=== PATIENT | male | born 1985 | race Caucasian/White ===

== ENCOUNTER → 2016-10-31 | Outpatient (CLI) | payer OTHER ==
[~2016-10-31] MED LIST: BACI1TAB3 PO; FEXO180T84 PO; HYDR-3730 PO; KDUR; LEVO750T9 PO; METR500T PO; MULT-192 PO; ONDA4TAB8 PO; POTA10TA PO; RANI150T15 PO; ZANTAC; ZOFRAN
--- NOTE | 2016-10-31 13:41 | Diagnostic Imaging Report ---
PROCEDURE: US abdomen complete. TECHNIQUE: Multiple real-time grayscale images were obtained over the abdomen in various projections. INDICATION: Epigastric pain. FINDINGS: The visualized portions of pancreas appear unremarkable. There is a hyperechoic mass measuring 1 cm in the left hepatic lobe and another similar hyperechoic mass measuring 1.8 x 2.0 x 1.9 cm in the right hepatic lobe. These are likely related to hemangiomas. There is no internal vascularity demonstrated with color Doppler. The gallbladder demonstrates wall thickening measuring up to 9 mm with internal echogenicity within in its lumen suggestive of sludge. No definitive stone. The CBD is obscured by bowel gas. No intrahepatic biliary dilatation is appreciated. The spleen is mildly enlarged at 14 x 6.2 x 6.2 cm. The left is kidney is 12.7 and the right kidney is 12.8 cm in length. There is no hydronephrosis or focal lesion. No fluid collection in the abdomen or pelvis seen. Sonographic Jones sign is reportedly negative. IMPRESSION: 1. Hepatic hyperechoic masses up to 2 cm in the right lobe favored to be related to hemangioma. Confirmation with liver mass protocol MRI or CT is recommended. If not performed, then at least obtain a followup hepatic ultrasound in six months. 2. Prominent gallbladder wall thickening with suggestion of sludge. No definite stones. This could relate to acalculous cholecystitis or secondary to hepatitis. 3. Mild splenomegaly. Dictated by: Dictated on workstation # [id number]
== END ==
LOC: RAD 12:38
PROVIDERS: ATTEND Nurse Practitioner Family
DX: R16.1 Splenomegaly, not elsewhere classified (principal); K76.9 Liver disease, unspecified
CPT/HCPCS: 76700

== ENCOUNTER 2016-11-08 20:04 | Inpatient (IN) | payer OTHER ==
[~2016-11-08] VITALS: Ht 188 cm; Wt 88.5 kg
[2016-11-08] MEDS ORDERED: ZANTAC (20:22)
[2016-11-08] MEDS ORDERED: ZOFRAN (20:22)
[2016-11-08] MEDS ORDERED: KDUR (20:22)
[2016-11-08] MEDS ORDERED: fentaNYL INJECTION 100 MCG/2 ML AMP IVP STA ×2 (20:35→21:33)
--- NOTE | 2016-11-08 20:35 | ED Abdominal Pain ---
General Chief Complaint: Abdominal/GI Problems Stated Complaint: ABD PAIN Nursing Triage Note: PT TO ED 4 W/ C/O "LEVEL 5 ABDOMINAL PAIN" ONSET TODAY. REPORTS RECENTLY DX W/ "GALLBLADDER SLUDGE" ET HAS INTERMITTENT PAIN X2 WKS. DENIES N/V/D Sepsis Screen: No Definite Risk History of Present Illness Time Seen By Provider: 20:30 Initial Comments Patient presents with 2 weeks of epigastric pain with intermittent nausea. He describes pain as his stomach being folded around something sharp and squeezing. He was worked up by his PCP outpatient with ultrasound found to have gallbladder sludge as well as some incidental hemangiomas in the liver and set up with a surgeon outpatient to discuss having his gallbladder taken out. He denies nausea right now. No fevers, chills, malaise. He had a bowel movement yesterday regular. No dysuria, no shortness of breath or chest pain. No history of surgeries to the belly. over the past couple weeks his PCP is been working him up and had an ultrasound showing sludge with mild thickening of the gallbladder wall. He has an appointment to see Dr. Ojeda, General Surgery in 2 days about elective surgery for his gallbladder. Allergies and Home Medications Allergies Coded Allergies: amoxicillin (Verified Allergy, Unknown, 11/08/16) cefaclor (Verified Allergy, Unknown, 11/08/16) montelukast (Verified Allergy, Unknown, 11/08/16) Home Medications [Kdur] , (Reported) [Zantac] , (Reported) [Zofran] , (Reported) Review of Systems Constitutional: No chills, No fever, malaise, No weight loss Respiratory: Denies Cough, Denies Shortness of Air Cardiovascular: Denies Chest Pain, Denies Edema Gastrointestinal: Abdominal Pain (epigastric radiates to back), Denies Constipated, Denies Diarrhea, Nausea, Denies Vomiting Genitourinary: Denies Burning, Denies Discharge Musculoskeletal: No back pain, No joint pain Skin: No pruritus, No rash Past Wekgssh-Geznrq-Yejkwz Hx Patient Social History Alcohol Use: Denies Use Recreational Drug Use: No Smoking Status: Never a Smoker Recent Foreign Travel: No Contact w/Someone Who Travel: No Recent Infectious Disease Expo: No Recent Hopitalizations: No Surgeries HX Surgeries: Yes (DENTAL) Respiratory Hx Respiratory Disorders: No Cardiovascular Hx Cardiac Disorders: No Neurological Hx Neurological Disorders: No Reproductive System Hx Reproductive Disorders: No Genitourinary Hx Genitourinary Disorders: No Gastrointestinal Hx Gastrointestinal Disorders: No Musculoskeletal Hx Musculoskeletal Disorders: No Endocrine Hx Endocrine Disorders: No HEENT HX ENT Disorders: No Cancer Hx Cancer: No Psychosocial Hx Psychiatric Problems: No Physical Exam Vital Signs VS - Last 72 Hours, by Label 11/08/16 20:07 Temp 98.0 Pulse 76 Resp 20 B/P (MAP) 142/100 Pulse Ox 100 O2 Delivery Room Air Capillary Refill : Less Than 3 Seconds General Appearance: WD/WN, moderate distress HEENT: PERRL/EOMI, pharynx normal Respiratory: chest non-tender, lungs clear Cardiovascular: normal peripheral pulses, regular rate, rhythm Peripheral Pulses: 4+ Dorsalis Pedis (R), 4+ Left Dors-Pedis (L), 4+ Radial Pulses (R), 4+ Radial Pulses (L) Gastrointestinal: normal bowel sounds, guarding, tenderness (epigastric, lumbar flexion reproduces the same pain.), other (Jones's sign positive) Extremities: normal range of motion, non-tender Back: normal inspection, no CVA tenderness Neurologic/Psychiatric: alert, oriented x 3 Skin: normal color, warm/dry Lymphatic: no adenopathy Progress/Results/Core Measures Results/Orders Lab Results Laboratory Tests Test 11/08/16 20:37 11/08/16 20:43 Range/Units Urine Color YELLOW Urine Clarity SLIGHTLY CLOUDY Urine pH 7 5-9 Urine Specific [place] 1.010 L 1.016-1.022 Urine Protein NEGATIVE NEGATIVE Urine Glucose (UA) NEGATIVE NEGATIVE Urine Ketones 3+ H NEGATIVE Urine Nitrite NEGATIVE NEGATIVE Urine Bilirubin NEGATIVE NEGATIVE Urine Urobilinogen NORMAL NORMAL MG/DL Urine Leukocyte Esterase 1+ H NEGATIVE Urine RBC (Auto) NEGATIVE NEGATIVE Urine RBC NONE /HPF Urine WBC 0-2 /HPF Urine Squamous Epithelial Cells 0-2 /HPF Urine Crystals NONE /LPF Urine Bacteria NONE /HPF Urine Casts NONE /LPF Urine Mucus NEGATIVE /LPF Urine Culture Indicated NO White Blood Count 14.5 H 4.3-11.0 10^3/uL Red Blood Count 5.40 4.35-5.85 10^6/uL Hemoglobin 16.0 13.3-17.7 G/DL Hematocrit 46 40-54 % Mean Corpuscular Volume 85 80-99 FL Mean Corpuscular Hemoglobin 30 25-34 PG Mean Corpuscular Hemoglobin Concent 35 32-36 G/DL Red Cell Distribution Width 12.8 10.0-14.5 % Platelet Count 317 130-400 10^3/uL Mean Platelet Volume 10.2 7.4-10.4 FL Neutrophils (%) (Auto) 79 H 42-75 % Lymphocytes (%) (Auto) 14 12-44 % Monocytes (%) (Auto) 6 0-12 % Eosinophils (%) (Auto) 1 0-10 % Basophils (%) (Auto) 0 0-10 % Neutrophils # (Auto) 11.4 H 1.8-7.8 X 10^3 Lymphocytes # (Auto) 2.0 1.0-4.0 X 10^3 Monocytes # (Auto) 0.9 0.0-1.0 X 10^3 Eosinophils # (Auto) 0.2 0.0-0.3 10^3/uL Basophils # (Auto) 0.1 0.0-0.1 10^3/uL Neutrophils % (Manual) 74 % Lymphocytes % (Manual) 16 % Monocytes % (Manual) 7 % Eosinophils % (Manual) 0 % Basophils % (Manual) 1 % Band Neutrophils 2 % Blood Morphology Comment NORMAL Sodium Level 140 135-145 MMOL/L Potassium Level 3.4 L 3.6-5.0 MMOL/L Chloride Level 103 98-107 MMOL/L Carbon Dioxide Level 24 21-32 MMOL/L Anion Gap 13 5-14 MMOL/L Blood Urea Nitrogen 10 7-18 MG/DL Creatinine 1.02 0.60-1.30 MG/DL Estimat Glomerular Filtration Rate > 60 BUN/Creatinine Ratio 10 Glucose Level 99 70-105 MG/DL Calcium Level 9.4 8.5-10.1 MG/DL Total Bilirubin 1.0 0.1-1.0 MG/DL Aspartate Amino Transf (AST/SGOT) 14 5-34 U/L Alanine Aminotransferase (ALT/SGPT) 19 0-55 U/L Alkaline Phosphatase 89 40-136 U/L Total Protein 7.8 6.4-8.2 G/DL Albumin 4.7 H 3.2-4.5 G/DL Amylase Level 87 25-125 U/L Lipase 18 8-78 U/L My Orders Orders - COLLEEN ROBERSON Amylase (11/08/16 20:35) Fentanyl Injection (Sublimaze Injection (11/08/16 20:35) Ondansetron Injection (Zofran Injectio (11/08/16 20:45) Ct Abdomen/Pelvis W (11/08/16 21:33) Fentanyl Injection (Sublimaze Injection (11/08/16 21:33) Ns Iv 1000 Ml (Sodium Chloride 0.9%) (11/08/16 21:33) Iohexol Injection (Omnipaque 350 Mg/Ml 1 (11/08/16 22:00) Ns (Ivpb) (Sodium Chloride 0.9% Ivpb Bag (11/08/16 22:00) Hydromorphone Injection (Dilaudid Inject (11/08/16 22:30) Hydromorphone Injection (Dilaudid Inject (11/08/16 22:27) Medications Given in ED Current Medications Medications Dose Ordered Sig/Rosalino Route Start Time Stop Time Status Last Admin Dose Admin Hydromorphone HCl 1 mg ONCE PRN IVP 11/08/16 22:30 11/08/16 22:32 1 MG Iohexol 100 ml ONCE ONCE IV 11/08/16 22:00 11/08/16 22:01 DC 11/08/16 22:01 100 ML Ondansetron HCl 4 mg ONCE ONCE IVP 11/08/16 20:45 11/08/16 20:46 DC 11/08/16 20:51 4 MG Sodium Chloride 100 ml ONCE ONCE IV 11/08/16 22:00 11/08/16 22:01 DC 11/08/16 22:02 80 ML Sodium Chloride 1,000 ml @ 0 mls/hr Q0M ONCE IV 11/08/16 21:33 11/08/16 21:35 DC 11/08/16 21:47 1,000 MLS/HR Vital Signs/I&O Vital Sign - Last 12Hours 11/08/16 20:07 Temp 98.0 Pulse 76 Resp 20 B/P (MAP) 142/100 Pulse Ox 100 O2 Delivery Room Air Intake and Output 11/09/16 00:00 Intake Total 1000 ml Balance 1000 ml Blood Pressure Mean: 114 Departure Communication Time/Spoke to Admitting Phy: 23:[address] Madrid will take inpt on clear liquid diet with Cipro and Flagyl and IV fluids and when necessary's for pain and nausea. He will decide tomorrow whether to take him to surgery or what him cool down on antibiotics and fluids. Impression Impression: Primary Impression: Choledocholithiasis Disposition: ADMITTED INPATIENT Condition: Stable Decision to Admit Reason: Admit from ER (General) Decision to Admit/Date: Nov 08, 2016 Time/Decision to Admit Time: 23:15 Departure-Patient Inst. Referrals: PRETTY HARDEN DO (PCP) Primary Care Physician MALIK APARICIO (Family) Primary Care Physician Copy Copies To 1: PRETTY HARDEN TITUS J Nov 08, 2016 20:35
[2016-11-08 20:44] LABS: BILIRUBIN,URINE NEGATIVE (NEGATIVE); KETONES,URINE 3+ (NEGATIVE); LEUKOCYTE ESTERASE ,URINE 1+ (NEGATIVE); NITRITE,URINE NEGATIVE (NEGATIVE); PH,URINE 7 (5-9); PROTEIN,URINE NEGATIVE (NEGATIVE); UROBILINOGEN,URINE NORMAL (NORMAL)
[2016-11-08] MEDS ORDERED: ONDANSETRON 4 MG/2 ML (SDV) Z0FRAN IVP ONE (20:45)
[2016-11-08 20:55] LABS: BASOPHILS # (AUTO) 0.1 10^3/uL (0.0-0.1); BASOPHILS % (AUTO) 0 % (0-10); EOSINOPHILS # (AUTO) 0.2 10^3/uL (0.0-0.3); EOSINOPHILS % (AUTO) 1 % (0-10); LYMPHOCYTES % (AUTO) 14 % (12-44); MEAN CORPUSCULAR HEMOGLOBIN 30 PG (25-34); MEAN CORPUSCULAR HGB CONC 35 G/DL (32-36); MEAN CORPUSCULAR VOLUME 85 FL (80-99); MEAN PLATELET VOLUME 10.2 FL (7.4-10.4); MONOCYTES # (AUTO) 0.9 X 10^3 (0.0-1.0); MONOCYTES % (AUTO) 6 % (0-12); NEUTROPHILS # (AUTO) 11.4 X 10^3 (1.8-7.8); NEUTROPHILS % (AUTO) 79 % (42-75); PLATELET COUNT 317 10^3/uL (130-400); RED CELL DISTRIBUTION WIDTH 12.8 % (10.0-14.5); WHITE BLOOD COUNT 14.5 10^3/uL (4.3-11.0)
[2016-11-08 21:02] LABS: SQUAMOUS EPITHELIAL CELL,UR 0-2 /HPF; WBC,URINE 0-2 /HPF
[2016-11-08 21:12] LABS: ALANINE AMINOTRANSFERASE 19 U/L (0-55); ALBUMIN 4.7 G/DL (3.2-4.5); AMYLASE 87 U/L (25-125); ANION GAP 13 MMOL/L (5-14); ASPARTATE AMINO TRANSFERASE 14 U/L (5-34); BLOOD UREA NITROGEN 10 MG/DL (7-18); BUN/CREATININE RATIO 10; CALCIUM 9.4 MG/DL (8.5-10.1); CARBON DIOXIDE 24 MMOL/L (21-32); CHLORIDE 103 MMOL/L (98-107); CREATININE SERUM 1.02 MG/DL (0.60-1.30); GFR ESTIMATED > 60; GLUCOSE 99 MG/DL (70-105); LIPASE 18 U/L (8-78); POTASSIUM 3.4 MMOL/L (3.6-5.0); SODIUM 140 MMOL/L (135-145); TOTAL PROTEIN 7.8 G/DL (6.4-8.2)
[2016-11-08 21:15] LABS: BAND NEUTROPHILS 2 %; BASOPHILS % (MANUAL) 1 %; EOSINOPHILS % (MANUAL) 0 %; LYMPHOCYTES % (MANUAL) 16 %; NEUTROPHILS % (MANUAL) 74 %
[2016-11-08] MEDS ORDERED: NS IV 1000 ML 1,000 ML IV ONE (21:33)
[2016-11-08] MEDS ORDERED: NS 100 ML (IVPB) BAG IV ONE (22:00)
[2016-11-08] MEDS ORDERED: IOHEXOL 350 MG/ML 100 ML (OMNIPAQUE 350) VIAL IV ONE (22:00)
[2016-11-08] MEDS ORDERED: HYDROmorphone (DILAUDID) 2 MG/ML VIAL ONE (22:27)
[2016-11-08] MEDS ORDERED: HYDROmorphone (DILAUDID) 2 MG/ML VIAL IVP PRN (22:30)
[2016-11-09] VITALS (7 sets, daily range): BP systolic 110–134; BP diastolic 70–89
[2016-11-09] MEDS ORDERED: NS IV 1000 ML 1,000 ML ONE (00:33)
[2016-11-09] MEDS ORDERED: ONDANSETRON 4 MG/2 ML (SDV) Z0FRAN ONE (00:33)
[2016-11-09] MEDS ORDERED: metroNIDAZOLE 500MG/100ML IVPB 100 ML ONE (00:33)
[2016-11-09] MEDS ORDERED: KETOROLAC 15 MG/ML VIAL ONE (00:33)
[2016-11-09] MEDS ORDERED: fentaNYL INJECTION 100 MCG/2 ML AMP IV PRN (01:15)
[2016-11-09] MEDS ORDERED: ONDANSETRON 4 MG/2 ML (SDV) Z0FRAN IV PRN (01:15)
[2016-11-09] MEDS ORDERED: CIPROFLOXACIN 400 MG/D5W 200 ML (PRE-MIX) IV SCH (01:15)
[2016-11-09] MEDS: NS IV 1000 ML 1,000 ML IV SCH ×2 (02:01→13:52)
[2016-11-09] MEDS: ACETAMINOPHEN 325 MG TABLET/CAPLET (TYLENOL) PO PRN ×2 (05:35→13:56)
[2016-11-09] MEDS ORDERED: metroNIDAZOLE 500 MG/100 ML IVPB (PRE-MIX) IV SCH (06:00)
[2016-11-09 06:13] LABS: BASOPHILS % (AUTO) 0 % (0-10); EOSINOPHILS % (AUTO) 0 % (0-10); LYMPHOCYTES # (AUTO) 0.7 X 10^3 (1.0-4.0); LYMPHOCYTES % (AUTO) 4 % (12-44); MEAN CORPUSCULAR HEMOGLOBIN 29 PG (25-34); MEAN CORPUSCULAR HGB CONC 34 G/DL (32-36); MEAN CORPUSCULAR VOLUME 86 FL (80-99); MEAN PLATELET VOLUME 10.6 FL (7.4-10.4); MONOCYTES # (AUTO) 1.1 X 10^3 (0.0-1.0); MONOCYTES % (AUTO) 6 % (0-12); NEUTROPHILS # (AUTO) 15.9 X 10^3 (1.8-7.8); NEUTROPHILS % (AUTO) 90 % (42-75); PLATELET COUNT 250 10^3/uL (130-400); RED BLOOD COUNT 5.36 10^6/uL (4.35-5.85); WHITE BLOOD COUNT 17.6 10^3/uL (4.3-11.0)
[2016-11-09 06:28] LABS: ALANINE AMINOTRANSFERASE 18 U/L (0-55); ALBUMIN 4.2 G/DL (3.2-4.5); ANION GAP 11 MMOL/L (5-14); ASPARTATE AMINO TRANSFERASE 19 U/L (5-34); BILIRUBIN,TOTAL 1.4 MG/DL (0.1-1.0); BLOOD UREA NITROGEN 9 MG/DL (7-18); BUN/CREATININE RATIO 10; CALCIUM 8.9 MG/DL (8.5-10.1); CARBON DIOXIDE 23 MMOL/L (21-32); CHLORIDE 104 MMOL/L (98-107); CREATININE SERUM 0.89 MG/DL (0.60-1.30); GFR ESTIMATED > 60; GLUCOSE 125 MG/DL (70-105); POTASSIUM 3.9 MMOL/L (3.6-5.0); SODIUM 138 MMOL/L (135-145); TOTAL PROTEIN 7.2 G/DL (6.4-8.2)
--- NOTE | 2016-11-09 08:11 | Diagnostic Imaging Report ---
CLINICAL INDICATION: Patient with abdominal pain off and on x2 weeks. No surgical history. Recent diagnosis of gallbladder sludge. EXAM: Axial CT scan of the abdomen and pelvis performed with 100 cc of Omnipaque 350 IV contrast. Coronal and sagittal reformatted images were created. Portal venous and delayed phases were obtained. COMPARISON: Ultrasound of the right upper quadrant dated 10/31/2016. FINDINGS: Visualized lung bases are clear. Bones show no significant abnormality. The extra-abdominal and extra pelvic soft tissue structures are unremarkable. There is a 1.6-cm peripherally enhancing lesion in the right lobe of the liver which demonstrates isodensity to liver on the delayed phase, likely representing a hemangioma. There is a 7-mm low-density lesion involving the anterior aspect of the left lobe of the liver which demonstrates no significant enhancement. A cyst may be considered. There is amorphous relative high-density involving the liver near the gallbladder fossa which may represent fatty sparing. There is mild low-attenuation diffusely throughout the liver which may be related to fatty infiltration. The spleen, pancreas, adrenal glands, and both kidneys show no significant abnormality. The gallbladder is enlarged and mildly distended measuring 11.2 cm x 4.5 cm. There is gallbladder wall thickening and adjacent fat stranding. There is a roughly 1.5-cm slightly high-density rounded structure in the region of the neck of the gallbladder which may represent a stone. There is no intra-hepatic ductal dilation or dilation of the pancreatic duct. There is no intra-abdominal free air or free fluid. The bladder is partially fluid distended, but no significant abnormality is visualized. The colon, small bowel, and stomach are unremarkable as visualized. Appendix is unremarkable. There is no significant abdominal or pelvic lymphadenopathy. IMPRESSION: 1. The gallbladder demonstrates enlargement, fluid distention, gallbladder wall thickening, and adjacent fat stranding. There is a 15-mm rounded slightly high-density structure in the neck of the gallbladder. These findings are concerning for acute cholecystitis. 2. A roughly 16-mm hemangioma in the right lobe of the liver. Suspected cyst involving the anterior aspect of the left lobe of the liver. 3. There is diffuse fatty infiltration of the liver with fatty sparing in the region of the gallbladder fossa. I agree with [employer] report. Dictated by: Dictated on workstation # [id number]
[2016-11-09] MEDS ORDERED: ONDA4TAB8 PO (09:49)
[2016-11-09] MEDS ORDERED: MULT-192 PO (09:49)
[2016-11-09] MEDS ORDERED: POTA10TA PO (09:49)
[2016-11-09] MEDS ORDERED: BACI1TAB3 PO (09:49)
[2016-11-09] MEDS ORDERED: RANI150T15 PO (09:49)
[2016-11-09] MEDS ORDERED: FEXO180T84 PO (09:50)
[2016-11-09] MEDS ORDERED: HYDROcodone/APAP 5 MG/325 MG (LORTAB) TAB ONE (10:53)
[2016-11-09] MEDS: HYDROcodone/APAP 7.5 MG/325 MG (LORTAB, LORCET PLUS) TABLET PO PRN ×4 (10:59→21:53)
[2016-11-09] MEDS ORDERED: PIPERACILLIN SODIUM/TAZOBACTAM 4.5 GM in NS (IVPB) 100 ML IV NR (11:04)
[2016-11-09] MEDS ORDERED: CATHETER FLUSH 10 ML SYR IV PRN (11:15)
--- NOTE | 2016-11-09 12:52 | History & Physicial ---
History of Present Illness History of Present Illness Reason for visit/HPI This is a 31 year old male who was seen with Dr. Lemus. He presented to the ER last night with complaints of RUQ abdominal pain for the last 2 weeks. Patient reports that approx 2 weeks ago he started developing sharp RUQ pain that radiated toward his back. He reports that he thought it was heartburn and tried tums without relief. He was then seen by his PCP and an Ultrasound was done with showed gallbladder sludge. He reports that he was to follow up with a surgeon about getting his gallbladder removed. He reports that the pain over the course of the 2 weeks has been increasing at times and has even had episodes of Nausea associated with it. He reports that the pain usually occurs after eating a meal. He also reports that he has had intermittent fevers/ chills. He says that the pain last night was becoming so severe that he presented to the ER where a CT scan was performed and he was found to have gallbladder wall thickening as well as a a gallstone in the neck of the gallbladder. He reports today that his pain continues to be moderate at times but is otherwise tolerable. He is tolerating a clear liquid diet and has not had any issues with diarrhea or constipation. Date of Admission Nov 08, 2016 at 23:15 I consulted on this patient on 11/09/16 12:44 Attending Physician Vik Lemus MD Admitting Physician Dari Barrow DO Consult Allergies and Home Medications Allergies Coded Allergies: amoxicillin (Verified Allergy, Unknown, 11/08/16) cefaclor (Verified Allergy, Unknown, 11/08/16) montelukast (Verified Allergy, Unknown, 11/08/16) Home Medications Bacillus Coagulans 1 Each Tab.chew, 2 TAB.CHEW PO DAILY, (Reported) Fexofenadine HCl 180 Mg Tablet, 180 MG PO DAILY PRN for ALLERGIES, (Reported) Multivitamin 1 Each Tab.chew, 6 TAB.CHEW PO DAILY, (Reported) Ondansetron 4 Mg Tab.rapdis, 4 MG PO Q6H PRN for NAUSEA/VOMITING-1ST LINE, ( Reported) Potassium Chloride 10 Meq Tablet.er, 10 MEQ PO Q12H, #20 (Reported) Ranitidine HCl 150 Mg Tablet, 150 MG PO Q12H, (Reported) Past Qoktxsz-Ttvjpw-Qafjrl Hx Patient Social History Alcohol Use: Denies Use Recreational Drug Use: No Smoking Status: Never a Smoker Physical Abuse Screen: No Sexual Abuse: No Recent Foreign Travel: No Contact w/other who traveled: No Recent Hopitalizations: Yes (ER TWO WEEKS AGO FOR ABD PAIN) Recent Infectious Disease Expo: No Seasonal Allergies Seasonal Allergies: Yes Surgeries HX Surgeries: Yes (DENTAL) Respiratory Hx Respiratory Disorders: No Cardiovascular Hx Cardiovascular Disorders: No Neurological Hx Neurological Disorders: No Reproductive System Hx Reproductive Disorders: No Sexually Transmitted Disease: No HIV/AIDS: No Genitourinary Hx Genitourinary Disorders: No Gastrointestinal Hx Gastrointestinal Disorders: No Gastrointestinal Disorders: Abdominal Hernia Musculoskeletal Hx Musculoskeletal Disorders: No Musculoskeletal Disorders: Fractures Endocrine Hx Endocrine Disorders: No HEENT HX ENT Disorders: No Cancer Hx Cancer: No Psychosocial Hx Psychiatric Problems: No Integumentary Skin/Integumentary Disorders: Eczema Blood Transfusions Adverse Reaction to a Blood Tr: No Family Medical History Family Hx: Asthma 19 FATHER Hypertension 19 FATHER Osteoporosis 19 MOTHER Respiratory disorder 19 FATHER Constitutional: chills, fever EENTM: no symptoms reported Respiratory: no symptoms reported Cardiovascular: no symptoms reported Gastrointestinal: RUQ, abdominal pain (RUQ), No constipation, No diarrhea, nausea Genitourinary: no symptoms reported Musculoskeletal: back pain Skin: no symptoms reported Psychiatric/Neurological: No Symptoms Reported Physical Exam Vital Signs Vital Sign - Last 12Hours 11/08/16 11/09/16 20:07 00:00 Temp 98.0 Pulse 76 Resp 20 B/P (MAP) 142/100 Pulse Ox 100 O2 Delivery Room Air O2 Flow Rate 1.50 Capillary Refill : Less Than 3 Seconds General Appearance: No Apparent Distress, WD/WN HEENT: PERRL/EOMI Neck: Full Range of Motion, Normal Inspection, Non Tender, Supple Respiratory: Chest Non Tender, Lungs Clear, Normal Breath Sounds, No Accessory Muscle Use, No Respiratory Distress Cardiovascular: Regular Rate, Rhythm, No Edema Gastrointestinal: Normal Bowel Sounds, Soft, Tenderness (RUQ, Epigastric area) Back: Normal Inspection Extremity: Normal Capillary Refill, Normal Inspection, Normal Range of Motion, Non Tender, No Calf Tenderness Neurologic/Psychiatric: Alert, Oriented x3, Normal Mood/Affect Skin: Normal Color, Warm/Dry Assessment/Plan Assessment and Plan A 31 year old male with acute cholecystitis with cholelithiasis. IV fluids, pain, nausea medications. IV abx with meropenem due to increase in WBC while on Cipro and Flagyl and allergic to PCN. clear liquid diet. Repeat lab in am. NPO at 0200. Will schedule for laparoscopic cholecystectomy tomorrow AM. Problems: Clinical Quality Measures DVT/VTE Risk/Contraindication: RFS Level Per Nursing on Admit: 0=No Risk/No VTE PPX Copy Copies To 1: VIK LEMUS MD, DUSTIN L APRN Nov 09, 2016 12:52
[2016-11-09] MEDS: MEROPENEM 500 MG in NS (IVPB) 100 ML IV SCH ×2 (13:52→18:37)
--- NOTE | 2016-11-09 15:44 | Progress Note-Pre Operative ---
Pre-Operative Progress Note H&P Reviewed The H&P was reviewed, patient examined and no changes noted. Date H&P Reviewed: Nov 09, 2016 Time H&P Reviewed: 15:43 Pre-Operative Diagnosis: acute cholecystitis VIK LEMUS MD Nov 09, 2016 3:44 pm
[2016-11-09] MEDS ORDERED: PIPERACILLIN SODIUM/TAZOBACTAM 4.5 GM in NS (IVPB) 100 ML IV SCH (17:00)
[2016-11-09] MEDS ORDERED: morphine INJ 4 MG/ML 1 ML (VIAL/SYRINGE) IVP PRN (18:30)
[2016-11-10] MEDS: MEROPENEM 500 MG in NS (IVPB) 100 ML IV SCH ×5 (00:10→23:55)
[2016-11-10] MEDS: HYDROcodone/APAP 7.5 MG/325 MG (LORTAB, LORCET PLUS) TABLET PO PRN ×3 (00:10→22:04)
[2016-11-10] MEDS: NS IV 1000 ML 1,000 ML IV SCH (00:10)
[2016-11-10 04:00] VITALS: BP 109/65
[2016-11-10 05:04] LABS: MEAN PLATELET VOLUME 11.1 FL (7.4-10.4); RED BLOOD COUNT 4.61 10^6/uL (4.35-5.85); RED CELL DISTRIBUTION WIDTH 13.3 % (10.0-14.5); WHITE BLOOD COUNT 12.7 10^3/uL (4.3-11.0)
[2016-11-10 05:21] LABS: ALANINE AMINOTRANSFERASE 16 U/L (0-55); ALBUMIN 3.6 G/DL (3.2-4.5); ANION GAP 10 MMOL/L (5-14); ASPARTATE AMINO TRANSFERASE 17 U/L (5-34); BILIRUBIN,TOTAL 1.7 MG/DL (0.1-1.0); BLOOD UREA NITROGEN 7 MG/DL (7-18); BUN/CREATININE RATIO 7; CALCIUM 8.2 MG/DL (8.5-10.1); CARBON DIOXIDE 23 MMOL/L (21-32); CHLORIDE 104 MMOL/L (98-107); CREATININE SERUM 0.97 MG/DL (0.60-1.30); GFR ESTIMATED > 60; GLUCOSE 101 MG/DL (70-105); POTASSIUM 4.1 MMOL/L (3.6-5.0); SODIUM 137 MMOL/L (135-145); TOTAL PROTEIN 6.4 G/DL (6.4-8.2)
[2016-11-10 08:00] VITALS: BP 111/73
[2016-11-10] MEDS: KETOROLAC 15 MG/ML VIAL IV PRN (08:28)
[2016-11-10] MEDS ORDERED: fentaNYL INJECTION 250 MCG/5 ML AMP ONE (09:13)
[2016-11-10] MEDS ORDERED: LACTATED RINGERS 1,000 ML IV ONE ×2 (09:13→10:53)
[2016-11-10] MEDS ORDERED: SEVOFLURANE (ULTANE) 15 ML INHAL SOLN ONE ×6 (09:13→11:54)
[2016-11-10] MEDS ORDERED: LIDOCAINE PF 2% 10 ML (XYLOCAINE) AMP ONE (09:13)
[2016-11-10] MEDS ORDERED: ROCURONIUM 50 MG/5 ML (ZEMURON) VIAL IV ONE (09:13)
[2016-11-10] MEDS ORDERED: proPOfol 200 MG/20 ML (DIPRIVAN) VIAL IV ONE (09:13)
[2016-11-10] MEDS ORDERED: DEXAMETHASONE PF 10 MG/ML (DECADRON) VIAL ONE (09:13)
[2016-11-10] MEDS ORDERED: ONDANSETRON 4 MG/2 ML (SDV) Z0FRAN ONE ×2 (09:13→11:53)
[2016-11-10] MEDS ORDERED: MIDAZOLAM 2 MG/2 ML (VERSED) VIAL ONE (09:14)
[2016-11-10] MEDS ORDERED: BUP/EPI 0.5% 1:200,000 (SENSORCAINE) 30 ML VIAL ONE (09:27)
[2016-11-10] MEDS: LACTATED RINGERS 1,000 ML IV PRN ×2 (10:00→11:00)
[2016-11-10] MEDS ORDERED: fentaNYL INJECTION 100 MCG/2 ML AMP ONE (11:38)
[2016-11-10] MEDS ORDERED: GLYCOPYRROLATE 0.2 MG/ML (ROBINUL) 2 ML VIAL ONE (12:08)
[2016-11-10] MEDS ORDERED: NEOSTIGMINE (BLOXIVERZ ) 1 MG/1ML 10 ML VIAL ONE (12:08)
--- NOTE | 2016-11-10 12:37 | Progress Note-Post Operative ---
Post-Operative Progess Note Surgeon (s)/Tennis Instructor (s) Surgeon VIK LEMUS MD Tennis Instructor: none Pre-Operative Diagnosis acute cholecystitis Post-Operative Diagnosis same Post-Op Procedure Note Date of Procedure: Nov 10, 2016 Name of Procedure Performed: laparoscopic cholecystectomy. Description of the Procedure: laparoscopic cholecystectomy. Findings of the Procedure . Anesthesia Type GET Estimated blood loss (mL): 100ml Specimen(s) collected/removed gallbladder VIK LEMUS MD Nov 10, 2016 12:37 pm
[2016-11-10] MEDS ORDERED: LEVO750T9 PO (12:41)
[2016-11-10] MEDS ORDERED: METR500T PO (12:41)
[2016-11-10] MEDS ORDERED: HYDR-3730 PO (12:41)
--- NOTE | 2016-11-10 12:42 | Discharge Inst-Surgical ---
D/C Lap Instructions-MARIAH New, Converted, or Re-Newed RX: RX on Chart Follow Up Appt in 1 week Activity as tolerated No driving for 24 hours No driving while on pain medications Incentive Spirometry use every 2 hours while awake Regular Diet Symptoms to Report: Fever over 101 degree F, Nausea/Vomiting Infection Signs and Symptoms to report: Increased redness, Foul odor of wound, Increased drainage Bathing instructions: May shower Operative Area Clean/Dry; Keep incision clean/dry If any problems/questions: Contact your physician or go to Emergency Room VIK LEMUS MD Nov 10, 2016 12:42 pm
[2016-11-10] MEDS ORDERED: fentaNYL INJECTION 100 MCG/2 ML AMP IVP PRN (12:45)
[2016-11-10] MEDS ORDERED: HYDROmorphone (DILAUDID) 2 MG/ML VIAL IVP PRN (12:45)
[2016-11-10] MEDS ORDERED: ONDANSETRON 4 MG/2 ML (SDV) Z0FRAN IVP PRN (12:45)
[2016-11-10] MEDS ORDERED: morphine INJ 10 MG/ML 1ML (SYR OR VIAL) IVP PRN (12:45)
[2016-11-10 14:00] VITALS: BP 103/65
--- NOTE | 2016-11-10 15:31 | OPERATIVE REPORT ---
DATE OF SERVICE: 11/10/2016 ATTENDING PRIMARY CARE PHYSICIAN: Dr. Barrow. PREOPERATIVE DIAGNOSIS: Acute cholecystitis. POSTOPERATIVE DIAGNOSIS: Acute cholecystitis. PROCEDURE: Laparoscopic cholecystectomy. SURGEON: Dr. Madrid. ANESTHESIA: General endotracheal. ESTIMATED BLOOD LOSS: 100 mL. FINDINGS: Severely inflamed acute cholecystitis with thickened gallbladder wall, as well as a large solitary stone. DISPOSITION: The patient tolerated the procedure well. Mr. Michael Sanders is a 31-year-old male with right upper abdominal quadrant pain for the past two weeks. He reports that before presenting to the [facility] Emergency Department he states that the pain was much more severe in intensity and would not remit. He initially thought that this was more related to heartburn and acid indigestion. He underwent an ultrasound as an outpatient which did show gallstones. In the Emergency Department he did have a CT scan which did show gallbladder wall thickening, as well as a stone impacted in the neck of the gallbladder consistent with an acute cholecystitis. DESCRIPTION OF PROCEDURE: The patient was brought to the operating room and laid supine on the table. After adequate IV pain and sedating medications and general endotracheal intubation, the abdomen was prepped and draped in the standard surgical fashion. There was 0.5% Marcaine with epinephrine used to anesthetize the overlying skin in the left upper abdominal quadrant. A small transverse skin incision was made using a 15 blade. An 0 silk suture was applied to the medial aspect of the incision for retraction and a Veress needle inserted with a low opening pressure of 0 mmHg and abdomen was insufflated to 15 mmHg pressure. The Veress needle removed and the 5 mm Xcel trocar placed followed by a 5 mm 45 degree angle laparoscope visualizing the peritoneal cavity. There was an inflammatory phlegmon in the area of the gallbladder with omentum and mesentery caked onto the gallbladder. What was visualized of the liver. The omentum, stomach, and small bowel appeared normal. Under direct visualization we then proceeded to place a supraumbilical 10 mm port after the skin and peritoneum were anesthetized using 0.5% Marcaine with epinephrine and a transverse skin incision made using 15 blade. In a similar manner, a right upper abdominal quadrant 5 mm port was placed. The patient was then placed in reverse Trendelenburg position, as well as planed right side up, left side down. The gallbladder was decompressed using a laparoscopic needle and suctioned with purulence identified within the drainage. The fundus of the gallbladder was then retracted anteriorly and superiorly. The omental adhesions, as well as inflammatory phlegmon were then gently dissected away from the gallbladder using blunt dissection, as well as electrocautery on the hook instrument. We proceeded carefully in this manner until the hepatoduodenal ligament was identified and this was dissected similarly identifying the triangle of Calot and the critical view of safety including the cystic duct and artery going into the gallbladder, as well as the liver behind the proximal gallbladder. A timeout was then taken and the cystic duct and artery were clipped proximally and distally and cut with endoshears. The gallbladder was then dissected off of the liver bed using electrocautery and the hip instrument with visualization and good hemostasis. The gallbladder was removed with a 10 mm port site using an endocatch bag. The right subhepatic and subhepatic space were then copiously irrigated and suctioned out. A 19-Sen[place]e Morgan-Sparrow drain was placed in the subhepatic space and brought out through the 5 mm port site. The abdomen was desufflated and the remaining ports removed. The fascia to the 10 mm port site was then closed under direct visualization using a running 0 PDS suture. All skin incisions were then closed using 4-0 Monocryl running subcuticular sutures. The wounds were then cleaned and covered with Dermabond. The patient tolerated the procedure well. We will admit him back to the floor and continue IV antibiotics for another 24 hours. When he is afebrile, is ambulating well and has adequate pain control with oral pain medication, we will discharge him home. Job ID: [id number] DocumentID: [id number] Dictated Date: 11/10/2016 12:47:00 Title Examiner Date: 11/10/2016 15:30:59 Dictated By: VIK MADRID MD [facility]
[2016-11-10 15:35] VITALS: BP 114/72
[2016-11-10] MEDS: ACETAMINOPHEN 325 MG TABLET/CAPLET (TYLENOL) PO PRN ×2 (18:15→23:55)
[2016-11-10 21:15] VITALS: BP 116/72
[2016-11-11] VITALS: BP 114/71
[2016-11-11 04:00] VITALS: BP 99/64
[2016-11-11] MEDS: MEROPENEM 500 MG in NS (IVPB) 100 ML IV SCH ×3 (05:49→11:23)
[2016-11-11 07:20] LABS: MEAN PLATELET VOLUME 10.3 FL (7.4-10.4); RED BLOOD COUNT 4.65 10^6/uL (4.35-5.85); RED CELL DISTRIBUTION WIDTH 13.2 % (10.0-14.5); WHITE BLOOD COUNT 16.7 10^3/uL (4.3-11.0)
[2016-11-11 07:40] LABS: ALANINE AMINOTRANSFERASE 51 U/L (0-55); ALBUMIN 3.4 G/DL (3.2-4.5); ANION GAP 11 MMOL/L (5-14); ASPARTATE AMINO TRANSFERASE 46 U/L (5-34); BILIRUBIN,TOTAL 0.6 MG/DL (0.1-1.0); BLOOD UREA NITROGEN 9 MG/DL (7-18); BUN/CREATININE RATIO 11; CALCIUM 8.5 MG/DL (8.5-10.1); CARBON DIOXIDE 24 MMOL/L (21-32); CHLORIDE 106 MMOL/L (98-107); CREATININE SERUM 0.82 MG/DL (0.60-1.30); GFR ESTIMATED > 60; GLUCOSE 123 MG/DL (70-105); SODIUM 141 MMOL/L (135-145); TOTAL PROTEIN 6.4 G/DL (6.4-8.2)
[2016-11-11 08:00] VITALS: BP 114/68
[2016-11-11] MEDS: HYDROcodone/APAP 7.5 MG/325 MG (LORTAB, LORCET PLUS) TABLET PO PRN ×2 (08:16→11:44)
--- NOTE | 2016-11-11 09:22 | Progress Note ---
Subjective Subjective/Events-last exam Patient feeling better he states. Pain controlled. Using incentive spirometer. Denies n/v fever sweats chills shortness of breath or chest pain. Objective Exam Vital Signs Date Time Temp Pulse Resp B/P (MAP) Pulse Ox O2 Delivery O2 Flow Rate FiO2 11/11/16 04:00 97.0 88 20 99/64 95 Room Air 11/11/16 00:00 97.8 75 22 114/71 95 Room Air 11/10/16 21:15 98.8 92 18 116/72 93 Room Air 11/10/16 15:35 98.9 89 18 114/72 96 Nasal Cannula 1.00 11/10/16 14:42 1.50 11/10/16 14:00 98.8 89 16 103/65 96 Nasal Cannula 2.00 11/10/16 09:38 100.9 I & O 11/11/16 07:00 Intake Total 4200 ml Output Total 3380 ml Balance 820 ml Capillary Refill : Less Than 3 Seconds General Appearance: No Apparent Distress, WD/WN HEENT: PERRL/EOMI Neck: Full Range of Motion, Normal Inspection, Non Tender, Supple Respiratory: Chest Non Tender, Lungs Clear, Normal Breath Sounds, No Accessory Muscle Use, No Respiratory Distress Cardiovascular: Regular Rate, Rhythm, No Edema Peripheral Pulses: 4+ Dorsalis Pedis (R), 4+ Left Dors-Pedis (L), 4+ Radial Pulses (R), 4+ Radial Pulses (L) Gastrointestinal: soft, tenderness (incisional tenderness, slight bruising around umbilicus, agusto drain serosang.), other Extremity: Normal Capillary Refill, Normal Inspection, Normal Range of Motion, Non Tender, No Calf Tenderness Neurologic/Psychiatric: Alert, Oriented x3, Normal Mood/Affect Skin: Normal Color, Warm/Dry Results Lab Laboratory Tests 11/11/16 07:15: White Blood Count 16.7H, Red Blood Count 4.65, Hemoglobin 13.7, Hematocrit 41, Mean Corpuscular Volume 88, Mean Corpuscular Hemoglobin 30, Mean Corpuscular Hemoglobin Concent 34, Red Cell Distribution Width 13.2, Platelet Count 240, Mean Platelet Volume 10.3, Sodium Level 141, Potassium Level 4.0, Chloride Level 106, Carbon Dioxide Level 24, Anion Gap 11, Blood Urea Nitrogen 9, Creatinine 0.82, Estimat Glomerular Filtration Rate > 60, BUN/Creatinine Ratio 11, Glucose Level 123H, Calcium Level 8.5, Total Bilirubin 0.6, Aspartate Amino Transf (AST/SGOT) 46H, Alanine Aminotransferase (ALT/SGPT) 51, Alkaline Phosphatase 81, Total Protein 6.4, Albumin 3.4 Microbiology 11/09/16 MRSA Screen - Final, Complete MRSA not isolated Assessment/Plan Assessment/Plan Assessment/Plan s/p lap shahida patient with drain which will stay. wbc slightly elevated likely due to surgery bili normal okay to dc home today if continues to feel well discussed discharge instructions and using incentive spirometer Clinical Quality Measures DVT/VTE Risk/Contraindication: RFS Level Per Nursing on Admit: 0=No Risk/No VTE PPX IMANI LARA DO Nov 11, 2016 09:22
--- NOTE | 2016-11-11 09:33 | Anesthesia-General Post-Op ---
General Patient Condition Mental Status/LOC: Same as Preop Cardiovascular: Satisfactory Nausea/Vomiting: Absent Respiratory: Satisfactory Pain: Controlled Complications: Absent Post Op Complications Complications None Follow Up Care/Instructions Patient Instructions None needed. Anesthesia/Patient Condition Patient Condition Patient is doing well, no complaints, stable vital signs, no apparent adverse anesthesia problems. No complications reported per nursing. ROBERTO GOOD CRNA Nov 11, 2016 09:32
[2016-11-11] MEDS: KETOROLAC 15 MG/ML VIAL IV PRN (11:22)
[2016-11-11 11:50] VITALS: BP 100/68
--- NOTE | 2016-11-22 10:01 | DISCHARGE SUMMARY ---
DATE OF SERVICE: ATTENDING PRIMARY CARE PHYSICIAN: Dr. Dari Barrow. ADMISSION DIAGNOSIS: Acute cholecystitis. DISCHARGE DIAGNOSIS: Acute cholecystitis. ADDITIONAL DIAGNOSIS: None. PRINCIPAL PROCEDURE: Laparoscopic cholecystectomy. COMPLICATIONS: No complications. DISPOSITION: The patient was discharged home in stable condition. The patient is a 31-year-old male who presented to [facility] Emergency Department with right upper abdominal quadrant pain for the past 2 weeks. He stated this was sharp in nature and would radiate towards the back, and this worsened over time. He initially thought that this was heartburn and tried [id number] acid reducers without any relief. He was seen by his primary care physician where ultrasound was performed which did show gallbladder sludge. He was scheduled to followup with a surgeon; however, the pain worsened over time and he also developed nausea with his symptoms. He also had some intermittent episodes of fevers and chills. A CT scan was performed which showed thickening of the gallbladder, as well as a gallstone at the neck of the gallbladder consistent with acute cholecystitis. PAST MEDICAL HISTORY: Peptic ulcer disease. PAST SURGICAL HISTORY: Abdominal hernia repair. ALLERGIES: AMOXICILLIN, CEFACLOR, MONTELUKAST. MEDICATIONS: 1. Fexofenadine 100 mg daily. 2. Ranitidine 150 mg b.i.d. 3. Potassium 10 mEq daily. SOCIAL HISTORY: Negative smoke. Negative alcohol. FAMILY HISTORY: Father hypertension. The patient was taken to the operating room on 11/10/16 and was found to have an acute cholecystitis and underwent a laparoscopic cholecystectomy where he had a significant thickened gallbladder wall, as well as a large solitary stone. A drain was placed as well. Postoperatively, he was sent back to the general surgical floor. He did well the rest of that day, as well as the following day. He had adequate pain control with oral pain medication. He was started on a clear liquid diet and advanced and tolerated this well. He also was afebrile. Drainage out of the JUDITH was minimal and serosanguineous. His vital signs remained stable throughout the hospital course as well. His laboratory work normalized as well. The patient was discharged home on 11/11/16. INSTRUCTIONS: DIET: As tolerated. ACTIVITY: No activity restrictions; however no heavy lifting or exertion for the next 2 weeks. May shower. MEDICATIONS: Lortab p.r.n., Levaquin 750 mg for 7 days. FOLLOWUP: He is to followup in the office in approximately 1 week to remove the drain. Job ID: [id number] DocumentID: [id number] Dictated Date: 11/21/2016 17:21:15 Preparer Samples And Repairs Date: 11/22/2016 10:01:04 Dictated By: VIK LEMUS MD
== END 2016-11-11 12:05 | disposition home or self-care (01) | DRG 419 ==
LOC: EDUNIT# 20:04 → ER 20:05 → 4TH 23:15
PROVIDERS: ADMIT Surgery Pediatric Surgery; ATTEND Surgery Pediatric Surgery
PROC: 0FT44ZZ Resection of Gallbladder, Percutaneous Endoscopic Approach (ICD-10-PCS; principal; 2016-11-10 10:07)
DX: K80.00 Calculus of gallbladder with acute cholecystitis without obstruction (principal)
CPT/HCPCS: 36415; 74177; 80053; 81000; 82150; 83690; 85007; 85025; 85027; 87081; 88304; 94664; 96361; 96374; 96375; 96376